=== PATIENT | male | born 1995 | race Caucasian/White ===

== ENCOUNTER 2019-05-12 11:01 | Emergency (ER) | payer OTHER ==
[2019-05-12 11:25] VITALS: TEMP 98.1
--- NOTE | 2019-05-12 11:41 | ED ---
Chest Pain HPI - General Chief Complaint: Chest Pain Stated Complaint: Chest Pain Time Seen by Provider: 05/12/19 11:29 Source: patient, RN notes reviewed, old records reviewed Mode of arrival: ambulatory Limitations: no limitations - History of Present Illness Initial Comments: Patient is a healthy 23-year-old male who presents emergency Department today with epigastric and substernal chest pain, symptoms coming and going for the past 2 days. Patient reports that he recently worse with movement and sitting up, and is bettr with relaxinf bACK. Patient reports a dull soreness to the area. He reports that symptoms did wake up this morning though. Patient states that he's had no cough fevers or chills. He denies any nausea or vomiting. Patient states that he is a nonsmoker. - Related Data Previous Rx's Medication Instructions Recorded Ibuprofen [Motrin] 600 mg PO Q8HR PRN #20 tab 05/12/19 Allergies Allergy/AdvReac Type Severity Reaction Status Date / Time cefaclor [From Ceclor] Allergy Rash/Hives Verified 05/12/19 11:25 Review of Systems ROS Statement: Those systems with pertinent positive or pertinent negative responses have been documented in the HPI. ROS Other: All systems not noted in ROS Statement are negative. EKG Findings - EKG Comments: EKG Findings:: EKG performed at 1144 just normal sinus rhythm rightward axis. Borderline EKG. Ventricular rate of 82 bpm. Intervals 118 ms. QRS durations is 82 ms. QT QTc is 342/399 ms. Past Medical History Past Medical History: No Reported History History of Any Multi-Drug Resistant Organisms: None Reported Past Surgical History: No Surgical Hx Reported Past Psychological History: No Psychological Hx Reported Smoking Status: Never smoker Past Alcohol Use History: None Reported Past Drug Use History: None Reported General Exam - General Exam Comments Initial Comments: 23 year old male, no distress. Limitations: no limitations General appearance: alert, in no apparent distress Head exam: Present: atraumatic, normocephalic, normal inspection Eye exam: Present: normal appearance, PERRL, EOMI. Absent: scleral icterus, conjunctival injection, periorbital swelling ENT exam: Present: normal exam, mucous membranes moist Neck exam: Present: normal inspection. Absent: tenderness, meningismus, lymphadenopathy Respiratory exam: Present: normal lung sounds bilaterally Cardiovascular Exam: Present: regular rate, normal rhythm, normal heart sounds. Absent: systolic murmur, diastolic murmur, rubs, gallop, clicks GI/Abdominal exam: Present: soft, tenderness (Substernal tenderness and minimal epigastric tenderness), normal bowel sounds. Absent: distended, guarding, rebou nd, rigid Extremities exam: Present: normal inspection, full ROM, normal capillary refill. Absent: tenderness, pedal edema, joint swelling, calf tenderness Back exam: Present: normal inspection Neurological exam: Present: alert, oriented X3, CN II-XII intact Psychiatric exam: Present: normal affect, normal mood Skin exam: Present: warm, dry, intact, normal color. Absent: rash Course Vital Signs 05/12/19 11:23 Temperature 98.1 F Pulse Rate 93 Respiratory 20 Rate Blood Pressure 144/87 O2 Sat by Pulse 99 Oximetry Chest Pain MDM - [facility] Patient is a 23-year-old male who presents emergency department today for evaluation with concern for sternal epigastric pain off-and-on for 2 days. Patient reports symptoms are worse with certain movements and sitting forward. He reports a dull pain. EKG was negative for any acute changes. Chest x-ray is normal. Patient given IM Toradol, dose of Protonix. He denies nausea or heartburn. Patient was informed patient's symptoms seem likely musculoskeletal in nature and advised that he can follow-up with PCP. Discussed return parameters. Patient advised to limit any heavy lifting. Disposition Clinical Impression: Abdominal tenderness, epigastric, Chest wall tenderness Disposition: HOME SELF-CARE Condition: Good Instructions (If sedation given, give patient instructions): Costochondritis (ED) Additional Instructions: Patient advised to avoid any heavy lifting. Follow-up with your primary care doctor. Take anti-inflammatory medication as prescribed. Return to emergency department if any alarming signs or symptoms occur. Prescriptions: Ibuprofen [Motrin] 600 mg PO Q8HR PRN #20 tab PRN Reason: Pain Is patient prescribed a controlled substance at d/c from ED?: No Referrals: None,Stated [Primary Care Provider] - 1-2 days Lissette Rodriges MD [REFERRING] - 1-2 days Time of Disposition: 12:38
[2019-05-12] MEDS ORDERED: PANTOPRAZOLE 40 MG TABLET PO STA (11:47)
[2019-05-12] MEDS ORDERED: KETOROLAC 60 MG/2 ML VIAL IM STA (11:47)
--- NOTE | 2019-05-12 12:17 | XR ---
EXAMINATION TYPE: XR chest 2V DATE OF EXAM: 05/12/2019 COMPARISON: None HISTORY: 23-year-old male chest and epigastric pain TECHNIQUE: PA and lateral views FINDINGS: The cardiomediastinal silhouette, aorta, and pulmonary vasculature are within normal limits. Lungs an d pleural spaces are clear. IMPRESSION: No acute cardiopulmonary process.
[2019-05-12 12:50] VITALS: BP 132/73; PULSE 82; RESP 16
== END 2019-05-12 12:43 | disposition home or self-care (01) ==
LOC: EC 11:01
DX: R10.13 Epigastric pain (principal); Z88.1 Allergy status to other antibiotic agents
CPT/HCPCS: 93005; 71046; 99285; 96372; J1885

== ENCOUNTER 2022-05-25 07:54 | Emergency (ER) | payer BC, OTHER ==
[2022-05-25 08:09] VITALS: TEMP 98.6
[2022-05-25] MEDS ORDERED: SODIUM CHLORIDE 0.9% 1,000 ML IV STA (08:20)
--- NOTE | 2022-05-25 08:27 | ED ---
Nausea/Vomiting/Diarrhea HPI - General Chief complaint: Nausea/Vomiting/Diarrhea Stated complaint: diarrhea Time Seen by Provider: 05/25/22 08:14 Source: patient Mode of arrival: ambulatory Limitations: no limitations - History of Present Illness Initial comments: This is a nontoxic-appearing 26-year-old male that presents to the emergency room with complaints of diarrhea for the past 10 days. States it's watery and white in color, approximately 5-6 episodes a day. Denies any fevers or vomiting. He did have surgery to remove an ingrown toenail at the beginning of May and was put on cefdinir for 7 days prophylactically which he finished approximately 2 weeks ago. Patient denies any abdominal pain but states does feel bloated. Denies any other medical history. No medicines on a daily basis. Is a nonsmoker. MD complaint: diarrhea -: days(s) (10) Description of Diarrhea: water (white color) Associated Abdominal Pain: Yes Radiation: none Severity scale (1-10): 4 Quality: other (bloating) Consistency: constant Context: recent antibiotic use Associated Symptoms: denies other symptoms - Related Data Home Medications Medication Instructions Recorded Confirmed No Known Home Medications 05/25/22 05/25/22 Allergies Allergy/AdvReac Type Severity Reaction Status Date / Time cefaclor [From [facility]] Allergy Rash/Hives Verified 05/25/22 09:18 Review of Systems ROS Statement: Those systems with pertinent positive or pertinent negative responses have been documented in the HPI. ROS Other: All systems not noted in ROS Statement are negative. Past Medical History Past Medical History: No Reported History History of Any Multi-Drug Resistant Organisms: None Reported Past Surgical History: Orthopedic Surgery Additional Past Surgical History / Comment(s): Toe surgery, 2022. Past Psychological History: No Psychological Hx Reported Smoking Status: Never smoker Past Alcohol Use History: None Reported Past Drug Use History: None Reported General Exam Limitations: no limitations General appearance: alert, in no apparent distress Head exam: Present: atraumatic, normocephalic Eye exam: Present: normal appearance. Absent: scleral icterus, conjunctival injection, periorbital swelling Neck exam: Present: full ROM. Absent: tenderness, meningismus Respiratory exam: Present: normal lung sounds bilaterally. Absent: respiratory distress, accessory muscle use Cardiovascular Exam: Present: tachycardia GI/Abdominal exam: Present: soft. Absent: distended, tenderness, guarding, rebound, rigid Extremities exam: Present: full ROM, normal capillary refill. Absent: tenderness, pedal edema Back exam: Present: full ROM. Absent: tenderness, CVA tenderness (R), CVA tenderness (L) Neurological exam: Present: alert, oriented X3 Psychiatric exam: Present: normal affect, normal mood Skin exam: Present: warm, dry, normal color. Absent: cyanosis, diaphoretic, petechiae, pallor Course Vital Signs 05/25/22 08:05 Temperature 98.6 F Pulse Rate 103 H Respiratory 18 Rate Blood Pressure 112/79 O2 Sat by Pulse 103 H Oximetry Medical Decision Making - Medical Decision Making X-ray abdomen interpreted by me shows no evidence of obstruction. No free air. Radiologist interpretation nonobstructive bowel gas pattern on x-ray. On exam abdomen is soft and nontender. No jaundice. No stools in the emergency room. No fevers. Denies any nausea or vomiting. Labs show no evidence of leukocytosis. Electrolytes show bilirubin of 1.9. Denies any medication on a daily basis. Patient instructed to follow-up with his primary care doctor next week for reevaluation due to complaints of white colored stool. No stools in the emergency room. He is agreeable to this plan of care. Case discussed with Dr. Schneider Was pt. sent in by a medical professional or institution (, [facility], [facility], urgent care, hospital, or snf...) When possible be specific @ -No Did you speak to anyone other than the patient for history (EMS, parent, family, police, friend...)? What history was obtained from this source @ -No Did you review nursing and triage notes (agree or disagree)? Why? @ -I reviewed and agree with nursing and triage notes Were old charts reviewed (outside hosp., previous admission, EMS record, old EKG, old radiological studies, urgent care reports/EKG's, snf records)? Report findings @ -No old charts were reviewed Differential Diagnosis (chest pain, altered mental status, abdominal pain women, abdominal pain men, vaginal bleeding, weakness, fever, dyspnea, syncope, headache, dizziness, GI bleed, back pain, seizure, CVA, palpatations, mental health, musculoskeletal)? @ -Differential, viral illness, C. diff, GI bleed, diverticulitis, enteritis this is not an all inclusive list EKG interpreted by me (3pts min.). @ -n/a X-rays interpreted by me (1pt min.). @ -Yes as above CT interpreted by me (1pt min.). @ -None done U/S interpreted by me (1pt. min.). @ -None done What testing was considered but not performed or refused? (CT, X-rays, U/S, labs)? Why? @ -CT was considered however abdomen is soft and nontender, patient is afebrile, no right lower quadrant pain, no leukocytosis What meds were considered but not given or refused? Why? @ -None Did you discuss the management of the patient with other professionals ( professionals i.e. , PA, PARER, lab, RT, psych nurse, social work specialist, sas sql developer, teacher, chief investment officer, shoe parts caser)? Give summary @ -No Was smoking cessation discussed for >3mins.? @ -No Was critical care preformed (if so, how long)? @ -No Were there social determinants of health that impacted care today? How? (Homelessness, low income, unemployed, alcoholism, drug addiction, transpo rtation, low edu. Level, literacy, decrease access to med. care, usp, rehab)? @ -No Was there de-escalation of care discussed even if they declined (Discuss DNR or withdrawal of care, Hospice)? DNR status @ -No What co-morbidities impacted this encounter? (DM, HTN, Smoking, COPD, CAD, Cancer, CVA, ARF, Chemo, Hep., AIDS, mental health diagnosis, sleep apnea, morbid obesity)? @ -None Was patient admitted / discharged? Hospital course, mention meds given and route, prescriptions, significant lab abnormalities, going to OR and other pertinent info. @ -Discharged Undiagnosed new problem with uncertain prognosis? @ -No Drug Therapy requiring intensive monitoring for toxicity (Heparin, Nitro, Insulin, Cardizem)? @ -No Were any procedures done? @ -No Diagnosis/symptom? @ -Diarrhea Acute, or Chronic, or Acute on Chronic? @ -Acute Uncomplicated (without systemic symptoms) or Complicated (systemic symptoms)? @ -Uncomplicated Side effects of treatment? @ -No Exacerbation, Progression, or Severe Exacerbation? @ -No Poses a threat to life or bodily function? How? (Chest pain, USA, [place], pneumonia, PE, COPD, DKA, ARF, appy, cholecystitis, CVA, Diverticulitis, Homicidal, Suicidal, threat to staff... and all critical care pts) @ -No - Lab Data Result diagrams: 05/25/22 08:47 05/25/22 08:47 Lab Results 05/25/22 05/25/22 Range/Units 08:47 08:47 WBC 7.3 (3.8-10.6) k/uL RBC 5.27 (4.30-5.90) m/uL Hgb 15.7 (13.0-17.5) gm/dL Hct 45.2 (39.0-53.0) % MCV 85.7 (80.0-100.0) fL MCH 29.7 (25.0-35.0) pg MCHC 34.6 (31.0-37.0) g/dL RDW 12.4 (11.5-15.5) % Plt Count 255 (150-450) k/uL MPV 7.5 Neutrophils % 71 % Lymphocytes % 21 % Monocytes % 4 % Eosinophils % 3 % Basophils % 0 % Neutrophils # 5.1 (1.3-7.7) k/uL Lymphocytes # 1.5 (1.0-4.8) k/uL Monocytes # 0.3 (0-1.0) k/uL Eosinophils # 0.2 (0-0.7) k/uL Basophils # 0.0 (0-0.2) k/uL Sodium 138 (137-145) mmol/L Potassium 4.4 (3.5-5.1) mmol/L Chloride 103 (98-107) mmol/L Carbon Dioxide 28 (22-30) mmol/L Anion Gap 7 mmol/L BUN 11 (9-20) mg/dL Creatinine 0.90 (0.66-1.25) mg/dL Est GFR (CKD-EPI)AfAm >90 (>60 ml/min/1.73 sqM) Est GFR (CKD-EPI)NonAf >90 (>60 ml/min/1.73 sqM) Glucose 102 H (74-99) mg/dL Calcium 9.6 (8.4-10.2) mg/dL Total Bilirubin 1.9 H (0.2-1.3) mg/dL AST 31 (17-59) U/L ALT 54 H (4-49) U/L Alkaline Phosphatase 76 (38-126) U/L Total Protein 7.8 (6.3-8.2) g/dL Albumin 4.7 (3.5-5.0) g/dL Amylase 65 (30-110) U/L Lipase 77 (23-300) U/L Disposition Clinical Impression: Diarrhea, Total bilirubin, elevated Disposition: HOME SELF-CARE Condition: Good Instructions (If sedation given, give patient instructions): Acute Diarrhea (ED) Additional Instructions: Follow-up with your primary care doctor this week and have your bilirubin level rechecked. Your level today is 1.9 which is slightly elevated. Return to the emergency room with any new or concerning symptoms. Increase your fluid intake. Is patient prescribed a controlled substance at d/c from ED?: No Referrals: None,Stated [Primary Care Provider] - 1-2 days Stevie Garsia MD [REFERRING] - 1-2 days Krys Phillips MD [STAFF PHYSICIAN] - 1-2 days Time of Disposition: 10:31
--- NOTE | 2022-05-25 09:10 | XR ---
EXAMINATION TYPE: XR KUB DATE OF EXAM: 05/25/2022 COMPARISON: NONE HISTORY: Pain TECHNIQUE: Single supine KUB image of the abdomen is obtained FINDINGS: Small bowel demonstrates no evidence for dilatation or air fluid levels. Gas and fecal material is seen in non-distended colon. No convincing evidence for pneumoperitoneum. No unusual calcifications. The lung bases are clear. The osseous structures are intact. IMPRESSION: 1. Overall nonobstructive bowel gas pattern.
[2022-05-25 10:02] LABS: Basophils % (A) 0 %; Eosinophils # (A) 0.2 k/uL (0-0.7); Eosinophils % (A) 3 %; HCT 45.2 % (39.0-53.0); HGB 15.7 gm/dL (13.0-17.5); Lymphocytes # (A) 1.5 k/uL (1.0-4.8); Lymphocytes % (A) 21 %; MCH 29.7 pg (25.0-35.0); MCHC 34.6 g/dL (31.0-37.0); MCV 85.7 fL (80.0-100.0); Mean Platelet Volume 7.5; Monocytes # (A) 0.3 k/uL (0-1.0); Monocytes % (A) 4 %; Neutrophils # (A) 5.1 k/uL (1.3-7.7); Neutrophils % (A) 71 %; Platelet Count 255 k/uL (150-450); RBC 5.27 m/uL (4.30-5.90); RDW 12.4 % (11.5-15.5); WBC 7.3 k/uL (3.8-10.6)
[2022-05-25 10:17] LABS: ALT 54 U/L (4-49); AST 31 U/L (17-59); African American GFR (CKD) >90 (>60 ml/min/1.73 sqM); Albumin 4.7 g/dL (3.5-5.0); Alkaline Phosphatase 76 U/L (38-126); Amylase 65 U/L (30-110); Anion Gap 7 mmol/L; Blood Urea Nitrogen 11 mg/dL (9-20); Calcium 9.6 mg/dL (8.4-10.2); Carbon Dioxide 28 mmol/L (22-30); Chloride 103 mmol/L (98-107); Glucose 102 mg/dL (74-99); Lipase 77 U/L (23-300); Non-African American GFR(CKD) >90 (>60 ml/min/1.73 sqM); Potassium 4.4 mmol/L (3.5-5.1); Sodium 138 mmol/L (137-145); Total Bilirubin 1.9 mg/dL (0.2-1.3); Total Protein 7.8 g/dL (6.3-8.2)
[2022-05-25 11:09] VITALS: BP 112/79; PULSE 103; RESP 18
== END 2022-05-25 11:15 | disposition home or self-care (01) ==
LOC: EC 07:54
DX: E80.7 Disorder of bilirubin metabolism, unspecified (principal); R19.7 Diarrhea, unspecified; Z88.8 Allergy status to other drugs, medicaments and biological substances
CPT/HCPCS: 36415; 74018; 80053; 82150; 83690; 85025; 96360; 99284

== ENCOUNTER → 2023-08-18 | Outpatient (CLI) | payer BC ==
--- NOTE | 2023-08-18 12:31 | FL ---
EXAMINATION TYPE: FL UGI air w small bowel DATE OF EXAM: 08/18/2023 COMPARISON: NONE HISTORY: Dysphasia TECHNIQUE: A double contrast UGI study is performed with small bowel follow through. A total of not provided seconds of fluoroscopic time was utilized during procedure and 22 images obtained. Total d ose area product (DAP) in uGy*m?, mGy*cm? (or similar): The provided. FINDINGS: Technical Support Technician image of the abdomen shows no gross abnormality. The esophagus shows normal emptying into the stomach. There are tertiary contractions of the esophagu s. Mild gastroesophageal reflux and small sliding hiatal hernia.. The stomach shows normal distensibility, peristalsis, and mucosal folds. No evidence of any mass or ulcer disease. The duodenal bulb and sweep are unremarkable. The small bowel study shows normal transit to the colon in less than 60 minutes. There is normal muc osal fold pattern throughout the small bowel. There is no evidence of any stricture or filling defec t noted. The terminal ileum is unremarkable. IMPRESSION: 1. Small hiatal hernia with mild gastroesophageal reflux. If concern for esophagitis correlate with E GD as clinically warranted.
== END | disposition home or self-care (01) ==
LOC: RADFLMAIN 07:51
PROVIDERS: ATTEND Family Medicine
DX: K21.9 Gastro-esophageal reflux disease without esophagitis (principal); K44.9 Diaphragmatic hernia without obstruction or gangrene; R13.19 Other dysphagia; K20.90 Esophagitis, unspecified without bleeding
CPT/HCPCS: 74240; 74248